=== PATIENT | male | born 1960 | race Caucasian/White ===

== ENCOUNTER 2020-02-15 11:25 | Emergency (ER) | payer OTHER ==
[2020-02-15] MEDS ORDERED: traMADol 50 MG Tab PO ONE (12:09)
--- NOTE | 2020-02-15 12:16 | EDM.PDOC ---
ED HPI GENERAL MEDICAL PROBLEM - General Chief Complaint: ENT Problem Stated Complaint: SEVRE TOOTH ACHE Time Seen by Provider: 02/15/20 11:50 Source of Information: Reports: Patient, RN, RN Notes Reviewed History Limitations: Reports: No Limitations - History of Present Illness INITIAL COMMENTS - FREE TEXT/NARRATIVE: Patient presents to the ED via personal vehicle with complaints of a tooth ache for the past week. The patient reports he has been to the dentist several times over the past three weeks as he recently underwent a tooth extraction of the right bottom posterior molar. Since this tooth extraction he has now noted pain in his right upper posterior molar. The pain has progressively worsened over the past 48 hours to the point it is impacting his ability to sleep. He states the pain originates in the molar and radiates into his cheek. He states he took "...8 tabs of Excedrin migrain" with no alleviation of symptoms. He denies headache, vision changes, pain with swallowing, or difficulty with swallowing. He attest to smoking two packs of cigarettes per day. He denies alcohol or recreational drug use. Right Upper Tooth/Teeth Pain Score (Numeric/FACES): 10 - Related Data Allergies Allergy/AdvReac Type Severity Reaction Status Date / Time No Known Allergies Allergy Verified 02/15/20 11:30 Home Meds: Home Meds . [No Known Home Meds] 02/15/20 [History] Past Medical History Cardiovascular History: Reports: Hypertension - Past Surgical History HEENT Surgical History: Reports: Other (See Below) Other HEENT Surgeries/Procedures: pulled teeth Social & Family History - Family History Family Medical History: No Pertinent Family History - Tobacco Use Tobacco Use Status *Q: Current Every Day Tobacco User Years of Tobacco use: 25 Packs/Tins Daily: 2 - Caffeine Use Caffeine Use: Reports: Soda - Recreational Drug Use Recreational Drug Use: No ED ROS ENT - Review of Systems Review Of Systems: Comprehensive ROS is negative, except as noted in HPI. ED EXAM, ENT - Physical Exam Exam: See Below Exam Limited By: No Limitations General Appearance: Alert, WD/WN, No Apparent Distress Eye Exam: Bilateral Eye: EOMI, Normal Inspection, PERRL Ears: Normal External Exam, Hearing Grossly Normal, Normal TMs (To right), TM Obscured by Cerumen (To left), Cerumen Impaction (To left) Nose: Normal Inspection, Normal Mucousa. No: Nasal Discharge, Nasal Swelling, Nasal Tenderness, Septal Deformity, Septal Hematoma Mouth/Throat: Dental Pain (To right upper posterior molar). No: Bleeding, Dental Abcess Head: Atraumatic, Normocephalic Neck: Normal Inspection, Supple, Non-Tender, Full Range of Motion Respiratory/Chest: No Respiratory Distress, Lungs Clear, Normal Breath Sounds, No Accessory Muscle Use, Chest Non-Tender Cardiovascular: Normal Peripheral Pulses, Regular Rate, Rhythm, No Edema, No Gallop, No JVD, No Murmur, No Rub Neurological: Alert, Oriented, CN II-XII Intact, Normal Cognition, Normal Gait, No Motor/Sensory Deficits Psychiatric: Normal Affect, Normal Mood Skin: Warm, Dry, Intact, Normal Color, No Rash. No: Ecchymosis, Erythema, Mottled, Pallor, Petechiae Course - Vital Signs Last Recorded V/S: Last Vital Signs Temp 97.1 F 02/15/20 11:36 Pulse 93 02/15/20 11:36 Resp 18 02/15/20 11:36 BP 136/86 02/15/20 11:36 Pulse Ox 99 02/15/20 11:36 - Orders/Labs/Meds Meds: Medications Discontinued Medications Generic Name Dose Route Start Last Admin Trade Name Benq PRN Reason Stop Dose Admin Tramadol HCl 50 mg 02/15/20 12:09 Ultram PO 02/15/20 12:10 ONETIME ONE - Re-Assessments/Exams Free Text/Narrative Re-Assessment/Exam: 02/15/20 Will discharge patient home with magic mouthwash and Tramadol for pain. Instructed patient to follow up with his dentist early next week. Departure - Departure Time of Disposition: 12:17 Disposition: Home, Self-Care 01 Condition: Good Clinical Impression: Pain, dental - Discharge Information *PRESCRIPTION DRUG MONITORING PROGRAM REVIEWED*: Not Applicable *COPY OF PRESCRIPTION DRUG MONITORING REPORT IN PATIENT DEISI: Not Applicable Additional Instructions: Rx: Tramadol Rx: Magic Mouthwash Drinking plenty of water to stay hydrated. Follow up with your dentist regarding today's visit early next week. Return to the ED with any fever, shaking chills, change in vision, difficulty swallowing, or severe pain with medication treatment. Sepsis Event Note (ED) - Evaluation Sepsis Screening Result: No Definite Risk - Focused Exam Vital Signs: Vital Signs Temp Pulse Resp BP Pulse Ox 02/15/20 11:36 97.1 F 93 18 136/86 99
== END 2020-02-15 12:43 | disposition home or self-care (01) ==
LOC: DL.ED 11:25
DX: K08.89 Other specified disorders of teeth and supporting structures (principal); H61.22 Impacted cerumen, left ear; F17.210 Nicotine dependence, cigarettes, uncomplicated; I10 Essential (primary) hypertension
CPT/HCPCS: 99282; A9270